=== PATIENT | female | born 1995 | race Caucasian/White ===

== ENCOUNTER 2023-01-20 18:57 | Emergency (ER) | payer MEDICAID, OTHER ==
[~2023-01-20] VITALS: Ht 152.4 cm; Wt 65.8 kg
[2023-01-20] MEDS ORDERED: IV NS 0.9% 1,000 ML BAG IV ONE (19:30)
[2023-01-20] MEDS ORDERED: MECLIZINE HCL 25 MG TABLET PO ONE (19:30)
[2023-01-20] MEDS ORDERED: MECLIZINE HCL 25 MG TABLET ONE (19:34)
[2023-01-20 19:58] LABS: BASOPHILS # (AUTO) 0.1 K/uL (0.0-0.2); BASOPHILS % (AUTO) 0.4 % (0.0-2.0); HEMATOCRIT 42 % (33-45); LYMPHOCYTES # (AUTO) 0.4 K/uL (0.8-4.8); MEAN CORPUSCULAR HEMOGLOBIN 30 PG (26.0-33.0); MEAN CORPUSCULAR HGB CONC 34 g/dl (31.0-36.0); MEAN CORPUSCULAR VOLUME 90 fL (82-100); MONOCYTES # (AUTO) 0.5 K/uL (0.1-1.30); MONOCYTES % (AUTO) 4.3 % (2.0-12.0); NEUTROPHILS # (AUTO) 11.8 K/uL (1.8-8.9); NEUTROPHILS % (AUTO) 92.3 % (43.0-81.0); PLATELET COUNT (AUTO) 312 K/uL (150-450); RED BLOOD CELL COUNT(AUTO) 4.64 MIL/uL (4.0-5.2); RED CELL DISTRIBUTION WIDTH 12.5 % (11.5-15.0); WHITE BLOOD COUNT (AUTO) 12.8 K/uL (4.3-11.0)
[2023-01-20 20:15] LABS: ALBUMIN 4.2 g/dL (3.4-5.0); BILIRUBIN,DIRECT 0.1 mg/dL (0.0-0.2); BILIRUBIN,TOTAL 0.7 mg/dL (0.2-1.0); CALCIUM, SERUM 9.3 mg/dL (8.5-10.1); CREATININE 0.7 mg/dL (0.6-1.3); POTASSIUM 3.5 mmol/L (3.5-5.1)
[2023-01-20] MEDS ORDERED: IBUPROFEN 600 MG TABLET ONE (20:49)
[2023-01-20] MEDS ORDERED: MECL-159 PO (20:51)
[2023-01-20] MEDS ORDERED: IBUPROFEN 600 MG TABLET PO ONE (21:00)
[2023-01-20 21:30] VITALS: BP 126/75; TEMP 98.2; O2SAT 100
== END 2023-01-20 21:30 | disposition home or self-care (01) ==
LOC: ER 19:07
DX: R42 Dizziness and giddiness (principal)
CPT/HCPCS: 99284; 96360; 93005; 85025; 80048; 83690; 80076; 36415; 82962; 84702; J8597; J7030